=== PATIENT | male | born 1990 | race African-American/Black ===

== ENCOUNTER 2021-05-01 10:42 | Emergency (ER) | payer BC, MEDICAID ==
[~2021-05-01] VITALS: Ht 167.6 cm; Wt 73.0 kg
[2021-05-01 11:12] VITALS: BP 126/66
== END 2021-05-01 14:58 | disposition home or self-care (01) ==
LOC: EMS 10:45
DX: M25.511 Pain in right shoulder (principal); F17.210 Nicotine dependence, cigarettes, uncomplicated; Y04.0XXA Assault by unarmed brawl or fight, initial encounter; Y93.89 Activity, other specified; Y92.89 Other specified places as the place of occurrence of the external cause; Y99.8 Other external cause status
CPT/HCPCS: 99283